=== PATIENT | female | born 1945 | race Caucasian/White ===

== ENCOUNTER 2019-02-17 10:57 | Outpatient (CLI) | payer MEDICARE ==
--- NOTE | 2019-02-17 13:04 | BD ---
Exam: DEXA Bone Density Indication: Post-menopausal, osteoporosis screening. Comparison: None. Lumbar Spine: BMD (g/cm2) L1 0.611 T-Score: -3.4 Z-Score: -1.4 L2 0.638 T-Score: -3.5 Z-Score: -1.3 L3 0.616 T-Score: -4.3 Z-Score: -1.9 L4 0.661 T-Score: -3.6 Z-Score: -1.2 L1-L4 0.632 T-Score: -3.8 Z-Score: -1.5 Femoral Neck: 0.414 T-Score: -3.9 Z-Score: -1.9 Total Femur: 0.385 T-Score: -4.6 Z-Score: -2.9 Impression: Based on WHO criteria, the patient's bone mineral density is considered osteoporotic. The patient is at high risk for fracture. POS: [facility]
--- NOTE | 2019-02-17 13:31 | MMO ---
Bilateral MAMMO Bilat Screen [facility]. CLINICAL HISTORY: Patient is 74 years old and is seen for screening. The patient has the following family history of breast cancer: mother. The patient has no personal history of cancer. VIEWS: The views performed were: bilateral craniocaudal with tomosynthesis and bilateral mediolateral oblique with tomosynthesis. MAMMOGRAM FINDINGS: There are scattered fibroglandular densities. There are no suspicious masses, suspicious calcifications, or new areas of architectural distortion. IMPRESSION: THERE IS NO MAMMOGRAPHIC EVIDENCE OF MALIGNANCY. A ROUTINE FOLLOW-UP MAMMOGRAM IN 1 YEAR IS RECOMMENDED. THE RESULTS OF THIS EXAM WERE SENT TO THE PATIENT. ACR BI-RADS Category 1 - Negative MAMMOGRAPHY NOTE: 1. A negative mammogram report should not delay a biopsy if a dominant of clinically suspicious mass is present. 2. Approximately 10% to 15% of breast cancers are not detected by mammography. 3. Adenosis and dense breasts may obscure an underlying neoplasm.
== END 2019-02-17 10:58 | disposition home or self-care (01) ==
LOC: BICMAMMO 10:57
PROVIDERS: ATTEND Family Medicine
DX: Z12.31 Encounter for screening mammogram for malignant neoplasm of breast (principal); Z78.0 Asymptomatic menopausal state; M81.0 Age-related osteoporosis without current pathological fracture; Z80.3 Family history of malignant neoplasm of breast
CPT/HCPCS: 77063; 77067; 77080

== ENCOUNTER 2019-02-18 10:15 | Outpatient (CLI) | payer MEDICARE ==
--- NOTE | 2019-02-18 11:06 | CT ---
EXAM: CT chest without contrast PROVIDED CLINICAL HISTORY: Screening COMPARISON: None FINDINGS: The heart, pericardium and great vessels are suboptimally evaluated in the absence of IV contrast mat erial. Conspicuous vascular calcification including coronary calcium is demonstrated. There is no evidence for thoracic lymph node enlargement with limitations due to lack of IV contrast. There is a spiculated 16mm average axial dimension noncalcified nodule present within the right lower lobe (image 137 series 2). There is a spiculated 13 mm average axial dimension nodule within the lef t upper lobe (image 99 series 2). Occasional sub-4 mm noncalcified nodular densities are present. No pleural fluid, pleural thickening or pneumothorax apparent. Emphysematous changes are seen involvi ng the lung apices. Several lower lobe subsegmental bronchi are focally opacified (for example right lower lobe, image 16 3 series 2). The airway appears otherwise patent and of normal caliber. The visualized portions of the upper abdomen demonstrate no acute abnormality. The osseous structures demonstrate no concerning osteoblastic or osteolytic lesions. IMPRESSION: 1. Lung RADS category 4X. Spiculated nodules within the left upper and right lower lobes as described above, suspicious for multifocal primary or metastatic malignancy. Consider tissue sampling or PET s can. 2. Atherosclerosis. 3. Scattered focally opacified lower lobe subsegmental bronchi, which could reflect aspiration. Other etiologies are not excluded.
== END 2019-02-18 10:16 | disposition home or self-care (01) ==
LOC: CT 10:15
PROVIDERS: ATTEND Family Medicine
DX: Z87.891 Personal history of nicotine dependence (principal); R91.8 Other nonspecific abnormal finding of lung field; I70.90 Unspecified atherosclerosis
CPT/HCPCS: G0297

== ENCOUNTER 2019-02-26 11:48 | Outpatient (CLI) | payer MEDICARE ==
--- NOTE | 2019-02-26 16:26 | PET ---
PET CT FROM SKULL TO MID THIGH: INDICATION: Abnormal CT lung cancer screening with mass noted in the left upper lobe and right lower lobe, concer n for primary lung malignancies versus metastatic disease. RADIOPHARMACEUTICAL: 12.6 mCi F18-FDG IV. TECHNIQUE: PET CT images were obtained from skull base through mid thighs. The CT images were obtained for atten uation correction purposes only. Comparison made with prior CT pulmonary lung scan dated 02/18/19. FINDINGS: The biodistribution for the examination appears acceptable. Head/Neck: There is some mild hypermetabolic activity seen at the level of the vocal cords, likely related to ph onation. There is some mild background uptake seen within the musculature of the neck, as well as the salivary glands of the upper neck. There are air fluid levels within the maxillary sinuses, right gr eater than left, suspicious for sinusitis. Thorax: The spiculated nodule within the left upper lobe seen on the comparison pulmonary lung scan on is not appreciably changed in size, measuring approximately 1.4 cm. There is some misregistration of the metabolic activity related to this lesion on the examination, likely related to respiration. T he peak SUV activity associated with this lesion is 1.22, with a mean activity of 1.16. The larger spiculated nodule within the right lower lobe measuring approximately 1.8 cm has hypermeta bolic activity associated with it with a peak value of 2.9 and a mean value of 2.78. This is superimp osed on chronic lung disease. No additional suspicious pulmonary nodule or pleural effusion is eviden t. Abdomen/Pelvis: No hypermetabolic mass or lymphadenopathy is evident. There is postprocedural change of an aortobifem oral bypass. There is background activity seen within the GI and system. Small focus of hypermetab olic activity seen within the right lateral aspect of the pelvis likely related to activity within th e descending right ureter that is slightly misregistered. Skin/Osseous Structures: No hypermetabolic skin or osseous lesion identified. IMPRESSION: Abnormal PET scan: 1. There is a hypermetabolic right lower lobe pulmonary nodule measuring up to 1.8 cm that is suspic ious for malignancy. This lesion would be amenable for percutaneous sampling if deemed clinically nec essary. 2. Hypermetabolic lesion that is seen in the left suprahilar region demonstrates only mild increased metabolic uptake of 1.2. Some of this may be related to the size of the lesion; however, due to its morphologic appearance, malignancy is still of concern. A short-term CT follow-up may be helpful to f urther evaluation this pulmonary nodule. Due to its size and metabolic activity, an infectious or inf lammatory process cannot be entirely excluded. Its position makes percutaneous sampling difficult. 3. Incidental note is made of suspected acute maxillary sinusitis, right greater than left. POS: [facility]
== END 2019-02-26 11:49 | disposition home or self-care (01) ==
LOC: PET 11:48
PROVIDERS: ATTEND Family Medicine
DX: R91.8 Other nonspecific abnormal finding of lung field (principal)
CPT/HCPCS: 78815; A9552

== ENCOUNTER 2019-03-09 08:20 | Day surgery (SDC) | payer MEDICARE ==
[2019-03-06 15:01] VITALS: BMI 20.1
[2019-03-09 08:43] LABS: Prothrombin Time 13.3 SEC (12.0-14.7)
[2019-03-09 13:19] VITALS: BP 155/72; TEMP 98
--- NOTE | 2019-03-09 13:41 | CT ---
CT Lung Perc Biopsy History: [Right lower lobe mass] Comparison: PET/CT February 26, 2019 Findings: Patient was brought to the CT suite. All questions were answered. Informed consent was obta ined. Timeout performed. The patient was put in the prone position. Right back was prepped and draped in normal sterile fashio n. Using CT guidance the right lower lobe mass was biopsied twice with an 18-gauge needle. Pathology confirmed adequacy. Trace extrapleural air. Impression: Technically successful CT-guided lung biopsy.
--- NOTE | 2019-03-09 14:39 | RAD ---
XR Chest Insp/Exp History: [Post biopsy] Comparison: CT same day Findings: No significant pneumothorax. Right lung mass present. Impression: No significant pneumothorax is appreciated.
== END 2019-03-09 14:51 | disposition home or self-care (01) ==
LOC: CT 08:20
PROVIDERS: ATTEND Internal Medicine Critical Care Medicine
PROC: 0BBF3ZX Excision of Right Lower Lung Lobe, Percutaneous Approach, Diagnostic (ICD-10-PCS; principal; 2019-03-09)
DX: C34.31 Malignant neoplasm of lower lobe, right bronchus or lung (principal); I73.9 Peripheral vascular disease, unspecified; I10 Essential (primary) hypertension; Z87.891 Personal history of nicotine dependence; Z79.82 Long term (current) use of aspirin; Z79.899 Other long term (current) drug therapy; Z98.890 Other specified postprocedural states
CPT/HCPCS: 32405; 36415; 71045; 77002; 85610; 85730; 88305; 88313; 88333; 88334; 88341; 88342

== ENCOUNTER 2019-06-10 07:22 | Outpatient (CLI) | payer MEDICARE ==
[2019-06-10] MEDS ORDERED: Iopamidol 300 61% 100 ML VIAL FS ONE (09:00)
--- NOTE | 2019-06-10 10:46 | CT ---
CT CHEST WITH CONTRAST: Date: 06/10/19 HISTORY: Lung mass. COMPARISON: PET CT dated 02/26/19. CT chest dated 02/18/19. FINDINGS: Severe centrilobular emphysema. The right lower lobe mass has decreased in volume with maximum transv erse dimension of 12 mm, previously 18 mm. In the left upper lobe is a second nodule which is similar in size with maximum dimension of 42 mm, u nchanged. The maximum craniocaudad dimension of left upper lobe nodule now measures approximately 9 m m, previously 7 mm. No pneumothorax. No effusion. No new acute superimposed suspicious pulmonary nodule. No air space con solidation. 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 No perihilar or mediastinal adenopathy. Likely partial visualization of what appears to be an aortic graft. No suspicious osteolytic or osteoblastic lesion. IMPRESSION: Mixed response to therapy. Size decrease of dominant right lower lobe mass with slight interval incre ase in craniocaudal dimension of the left upper lobe mass. POS: [facility]
== END 2019-06-10 07:23 | disposition home or self-care (01) ==
LOC: SCSCT 07:22
PROVIDERS: ATTEND Radiology Radiation Oncology
DX: R91.8 Other nonspecific abnormal finding of lung field (principal); Z85.118 Personal history of other malignant neoplasm of bronchus and lung
CPT/HCPCS: 71260; 82565; Q9967

== ENCOUNTER 2019-09-11 10:00 | Outpatient (CLI) | payer MEDICARE ==
--- NOTE | 2019-09-11 11:08 | CT ---
CT OF THE ABDOMEN AND PELVIS WITH AND WITHOUT IV CONTRAST INDICATION: Hematuria TECHNIQUE: Noncontrast CT of the abdomen and pelvis was performed. Postcontrast images were obtained in the nephrographic phase. Axial and coronal reformatted images were constructed from the raw data. COMPARISON: None FINDINGS: ABDOMEN: Lung bases: There is mild right basilar atelectasis Liver: No focal lesion. Gallbladder: Normal appearing. Pancreas: Normal. Adrenal glands: Normal. Spleen: Normal. Kidneys and ureters: There are small bilateral renal cysts. The largest is seen involving the inferio r pole measuring 8 mm. Vasculature: There are severe vascular calcifications seen involving the visualized vasculature. Ther e is postprocedural change of an aorto bi-. Bypass. The [place] distal abdominal aorta and common iliac arteries are occluded. The external iliac arteries remain patent. Lymph nodes:No lymphadenopathy. Free fluid in abdomen:No free fluid is evident. PELVIS: Small and large bowel: There is fluid density seen within the colon which is nonspecific but can be s een with diarrheal states or mild colitis. Small amount of fluid density is also present within the distal small bowel which is nonspecific. Appendix:Not definitely seen Bladder: Normal. Rectal and perirectal soft tissues:Normal. Reproductive structures: Normal. Free fluid in pelvis: No free fluid is evident. Lymphadenopathy pelvis: No lymphadenopathy is evident. Osseous structures: No acute osseous abnormality. No destructive osteolytic or osteoblastic lesion i s identified. There is scattered degenerative and osteoarthritic changes. Soft tissues:Normal. IMPRESSION: 1. No solid renal lesion or hydronephrosis demonstrated. No gross urothelial lesion demonstrated. The re are bilateral renal cysts. 2. Fluid density within the colon can be seen in diarrheal states or mild colitis. Recommend correlat ion.
--- NOTE | 2019-09-11 12:03 | RAD ---
IVP History of hydronephrosis COMPARISON: CT IVP examination dated 09/11/2019 [employer] images demonstrate a nonspecific bowel gas pattern without overt evidence of obstruction. There are scattered vascular calcifications. Lung bases are clear. There are surgical clips are seen within the central abdomen as well as the inguinal regions. Initial 5 minute examination demonstrates a symmetric nephrograms and symmetric excretion. There is p oor opacification of the mid to distal right ureter. There is segmental opacification of the left ureter. No visible urothelial lesion is grossly evident within the limitations of this exam. The visu alized bladder is normal-appearing. There is minimal post void residual. IMPRESSION: No gross abnormality seen within the limitations of this IVP exam
== END 2019-09-11 10:01 | disposition home or self-care (01) ==
LOC: RAD 10:00
PROVIDERS: ATTEND Urology
DX: N13.39 Other hydronephrosis (principal)
CPT/HCPCS: 74178; 74410; 82565

== ENCOUNTER 2019-10-13 07:21 | Outpatient (CLI) | payer MEDICARE ==
--- NOTE | 2019-10-13 12:55 | CT ---
EXAM: CT of the chest with contrast HISTORY: Lung mass COMPARISON: 06/10/2019 TECHNIQUE: Multiple contiguous axial images were obtained in a CT the chest with contrast. Coronal an d sagittal reformats were performed. FINDINGS: HEART: Normal in size without focal cardiac abnormality MEDIASTINUM: No hilar or mediastinal lymphadenopathy. LUNGS: The lingular mass has increased in size and is spiculated in appearance measuring 1.8 cm in gr eatest dimension. Consolidation is seen surrounding the mass in the right lower lobe. The mass is difficult to visualize but measures approximately 1.2 cm in size. PLEURAL SPACE: No pneumothorax or pleural effusion. CHEST WALL SOFT TISSUES: Unremarkable OSSEOUS STRUCTURES: No acute abnormality. VISUALIZED SUBDIAPHRAGMATIC STRUCTURES: Small right renal cyst. Hyperplasia of the adrenal glands. IMPRESSION: 1. Enlarging left upper lobe lung mass. 2. Consolidation surrounding the right lower lobe mass may represent post radiation therapy change. A lternatively, this could represent interstitial spread of malignancy.
== END 2019-10-13 07:22 | disposition home or self-care (01) ==
LOC: SCSCT 07:21
PROVIDERS: ATTEND Radiology Radiation Oncology
DX: C34.91 Malignant neoplasm of unspecified part of right bronchus or lung (principal); R91.8 Other nonspecific abnormal finding of lung field
CPT/HCPCS: 71260; 82565

== ENCOUNTER 2019-10-22 11:38 | Outpatient (CLI) | payer MEDICARE ==
--- NOTE | 2019-10-22 15:03 | PET ---
PET CT: HISTORY: Squamous cell carcinoma of the right lung, treated with radiation therapy. New left lung mass. Exam r equested to evaluate for suspected malignancy/metastatic disease and to plan subsequent therapy. COMPARISON: 02/26/2019 CORRELATION: CT chest from 10/13/2019. TECHNIQUE: PET scanning with CT attenuation correction was performed from the base of the brain through the prox imal thighs following the intravenous administration of 11 millicuries of F18 fluorodeoxyglucose in t he right wrist. FINDINGS: There is hypermetabolic activity in the 1.8 cm left upper lobe lung nodule with an SUV of 9. There is increased FDG localization with an SUV of 4.4 in the 1.2 cm nodule in the right lower lobe. The infiltrate adjacent to this has an SUV of 2.3 and is likely due to radiation change. The nodule i s suspicious. No yariel hypermetabolism is seen in the neck, mediastinum, hilar regions, axillae, abdomen, pelvis or inguinal regions. No hypermetabolic liver, adrenal or skeletal lesions are identified. There is physiologic activity in the GI and tracts. IMPRESSION: Hypermetabolic activity in the nodules in the left upper and right lower lobes suspicious for maligna ncy/metastatic disease. POS: [facility]
== END 2019-10-22 11:39 | disposition home or self-care (01) ==
LOC: PET 11:38
PROVIDERS: ATTEND Radiology Radiation Oncology
DX: R91.8 Other nonspecific abnormal finding of lung field (principal)
CPT/HCPCS: 78815; A9552

== ENCOUNTER 2019-11-18 06:47 | Day surgery (SDC) | payer MEDICARE ==
[2019-11-17 09:58] VITALS: BMI 20.9
[2019-11-18] MEDS ORDERED: Famotidine/PF 20 mg/2ml Vial ONE (09:32)
[2019-11-18] MEDS ORDERED: Fentanyl 100 MCG/2 ML VIAL ONE (09:32)
[2019-11-18] MEDS ORDERED: Succinylcholine Chloride 20 MG/ML 10 ml SYRINGE FS ONE (10:25)
[2019-11-18] MEDS ORDERED: Ondansetron PF 4 MG/2 ML Vial ONE (10:25)
[2019-11-18] MEDS ORDERED: Dexamethasone 20 MG/5 ML VIAL ONE (10:25)
[2019-11-18] MEDS ORDERED: PHENYLEPHRINE-NS 100 MCG/ML 10 ML SYRINGE ONE (10:25)
[2019-11-18] MEDS ORDERED: Metoclopramide HCl 10 MG/2 ML VIAL ONE (10:25)
[2019-11-18] MEDS ORDERED: PROPOFOL 200 MG/20 ML VIAL ONE (10:25)
[2019-11-18] MEDS ORDERED: Lidocaine 1% PF 5 ML VIAL ONE (10:25)
--- NOTE | 2019-11-18 11:22 | OP ---
DATE OF PROCEDURE: 11/18/2019 PROCEDURE PERFORMED: Bronchoscopy. PREOPERATIVE DIAGNOSIS: Left upper lobe lung mass. POSTOPERATIVE DIAGNOSIS: Left upper lobe lung mass. ANESTHESIA: General endotracheal. DESCRIPTION OF PROCEDURE: This procedure was done in the operating room under cardiopulmonary monitoring. The patient understood the risks of the procedure including bleeding, infection, external lung puncture, and reaction to anesthetic. She agreed to proceed. The patient was intubated by the Anesthesiology Staff with 8.0 endotracheal tube. She was placed on mechanical ventilation and on general anesthetic. A 2.4 Olympus bronchoscope was placed through the patient's adapter on the endotracheal tube. The alex was sharp. The right upper lobe had 4 subsegments, which were clear. The right middle lobe and right lower lobe were clear. The left mainstem bronchus and left lower lobe were clear. The left upper lobe was clear in the lingular aspect. There was some narrowing in one of the segments of the apical posterior portion that went more anterior. Under fluoroscopic guidance, this was the region where transbronchial biopsies, brushings, and washings were obtained. There was some self-limited bleeding from one of the biopsies. This cleared after washing. She tolerated the procedure well and she was taken to the recovery area in stable condition. Job ID: [id number]
== END 2019-11-18 11:25 | disposition home or self-care (01) ==
LOC: SDC 06:47
PROVIDERS: ATTEND Internal Medicine Critical Care Medicine
PROC: 0BBG8ZX Excision of Left Upper Lung Lobe, Via Natural or Artificial Opening Endoscopic, Diagnostic (ICD-10-PCS; principal; 2019-11-18)
PROC: 0BDG8ZX Extraction of Left Upper Lung Lobe, Via Natural or Artificial Opening Endoscopic, Diagnostic (ICD-10-PCS; 2019-11-18)
DX: R91.1 Solitary pulmonary nodule (principal); I10 Essential (primary) hypertension; I73.9 Peripheral vascular disease, unspecified; Z85.118 Personal history of other malignant neoplasm of bronchus and lung; Z87.891 Personal history of nicotine dependence; Z79.899 Other long term (current) drug therapy
CPT/HCPCS: 76000; 88112; 88305; 88312; J1100; J2001; J2405; J2704; J2765; J3010; S0028

== ENCOUNTER 2020-01-15 12:45 | Outpatient (CLI) | payer MEDICARE ==
--- NOTE | 2020-01-15 13:14 | ULT ---
EXAM: Right lower extremity venous Doppler US HISTORY: Right lower extremity edema and pain FINDINGS: Grayscale, color-flow, Doppler evaluation, spectral analysis of the right lower extremity venous stru ctures is performed with 2-D imaging. The right common femoral, superficial femoral, popliteal, posterior tibial, proximal greater saphenous and profunda femoral veins are imaged. There is normal luminal compressibility, flow, and augmentation the visualized deep venous structures of the right lower extremity. IMPRESSION: No evidence of a deep vein thrombosis in the right lower extremity.
== END 2020-01-15 12:46 | disposition home or self-care (01) ==
LOC: ULT 12:45
PROVIDERS: ATTEND Physician Assistant
DX: R60.0 Localized edema (principal)